=== PATIENT | female | born 1990 | race Caucasian/White ===

== ENCOUNTER 2022-07-03 15:01 | Emergency (ER) | payer OTHER ==
[2022-07-03 15:08] VITALS: BP 136/71
--- NOTE | 2022-07-03 15:33 | ED Physician Documentation ---
PD HPI LOWER EXT INJURY - Stated complaint Stated Complaint: TOE INJURY - Chief complaint Chief Complaint: Trauma Ext - History obtained from History obtained from: Patient - Additional information Additional information: Patient is a 32-year-old female presenting for evaluation of right middle toe pain since Friday. She excellently dropped a Bluetooth speaker on it and has noted bruising and discomfort since then. She notices the pain is worse as she is going downstairs. She has not been taking anything for the pain. She does not take a blood thinner. Review of Systems Constitutional: denies: Fever Cardiac: denies: Chest pain / pressure Respiratory: denies: Dyspnea GI: denies: Abdominal Pain Musculoskeletal: reports: Extremity pain PD PAST MEDICAL HISTORY - Past Medical History Past Medical History: No - Past Surgical History Past Surgical History: No - Allergies Allergies/Adverse Reactions: Allergies Allergy/AdvReac Type Severity Reaction Status Date / Time No Known Drug Allergies Allergy Verified 07/03/22 15:08 - Social History Does the pt smoke?: No Smoking Status: Never smoker Does the pt drink ETOH?: No Does the pt have substance abuse?: No - Immunizations Immunizations are current?: Yes - POLST Patient has POLST: No PD ED PE NORMAL - General General: Alert and oriented X 3, No acute distress, Well developed/nourished - HEENT HEENT: Atraumatic - Cardiac Cardiac: Strong equal pulses - Respiratory Respiratory: No respiratory distress - Derm Derm: Warm and dry - Extremities Extremities: Other (Contusion, mild swelling to distal right middle toe; No subungual hematoma) - Neuro Neuro: No motor deficit, No sensory deficit Results - Vitals Vitals: Vital Signs - 24 hr 07/03/22 15:05 Temperature 36.8 C Heart Rate 92 Respiratory 16 Rate Blood Pressure 136/71 H O2 Saturation 100 Oxygen O2 Source Room air PD Medical Decision Making - ED course Complexity details: reviewed results, re-evaluated patient ED course: Patient with injury to toe. Neurovascularly intact with no open injury and no subungual hematoma requiring trephination. An x-ray was obtained which I interpreted and is negative for signs of fracture or dislocation. She likely has a contusion to the toe which is causing her pain. Patient agreeable to angelique tape and discussed continued supportive care. She is ambulatory. She is advis ed on concerning symptoms to return for. Departure - Departure Disposition: Home, Self Care Clinical Impression: Contusion of toe of right foot Qualifiers: Encounter type: initial encounter Toe: lesser toe Damage to nail status: without damage Qualified Code(s): S90.121A - Contusion of right lesser toe(s) without damage to nail, initial encounter Condition: Stable Instructions: ED Sprain Toe Comments: Your x-ray does not show a broken or dislocated toe. You do have a bruise to the toe which may take several more days for to feel back to normal. Please continue to use caution. We have applied a angelique tape which may help in making this feel better. Please continue with ice and elevating the foot. If you have any new or worsening symptoms please consider return to the emergency department. Forms: Activity restrictions Discharge Date/Time: 07/03/22 15:53
--- NOTE | 2022-07-03 15:42 | XRAY Report ---
PROCEDURE: Toe(s) RT INDICATIONS: pain/dropped speaker on it TECHNIQUE: 3 views of the third toe(s) acquired. COMPARISON: None FINDINGS: Bones: No fractures or dislocations. No suspicious bony lesions. Soft tissues: No suspicious soft tissue densities. IMPRESSION: No displaced fracture. Reviewed by: Sebastian Belle on 07/03/2022 3:41 PM PST Approved by: Sebastian Belle on 07/03/2022 3:41 PM PST Station ID: [id number]
== END 2022-07-03 15:53 | disposition home or self-care (01) ==
LOC: ED 15:01
DX: S90.121A Contusion of right lesser toe(s) without damage to nail, initial encounter (principal); W20.8XXA Other cause of strike by thrown, projected or falling object, initial encounter; Y92.9 Unspecified place or not applicable
CPT/HCPCS: 99283

== ENCOUNTER 2022-08-31 09:04 | Emergency (ER) | payer OTHER ==
[2022-08-31 09:14] VITALS: BP 129/90
[2022-08-31] MEDS ORDERED: CHERRY SYRUP 10 ML UDC PO ONE (09:56)
[2022-08-31] MEDS ORDERED: DEXAMETHASONE 10 MG/ML VIAL PO STA (09:56)
--- NOTE | 2022-08-31 09:59 | ED Physician Documentation ---
PD HPI HEENT - Stated complaint Stated Complaint: LT EAR PX/PRESSURE - Chief complaint Chief Complaint: Heent - History obtained from History obtained from: Patient - History of Present Illness Timing - onset: How many days ago (4) Timing - duration: Days (4) Timing - details: Gradual onset, Still present Location: Left ear Improves: Medication Worsens: Everything Associated symptoms: Congestion, Rhinorrhea, Cough Similar symptoms before: Diagnosis (OM) Recently seen: Clinic - Additional information Additional information: 32-year-old Kendra Ferreira has recently been placed on Augmentin for a left otitis media. She felt this was improving until she blew her nose today and felt pressure develop in her left ear she is unable to get the ear to pop and she is coming in for evaluation. She has recently been into see her doctor 4 days ago and her symptoms improved rapidly after beginning the Augmentin. She did have sore throat initially. Review of Systems Constitutional: denies: Fever Eyes: denies: Decreased vision Ears: reports: Loss of hearing, Ear pain Nose: reports: Rhinorrhea / runny nose, Congestion Throat: reports: Sore throat (Improved) Cardiac: denies: Chest pain / pressure, Palpitations Respiratory: reports: Cough. denies: Dyspnea GI: denies: Nausea, Vomiting, Diarrhea PD PAST MEDICAL HISTORY - Past Surgical History Past Surgical History: No - Present Medications Home Medications: Ambulatory Orders Medication Instructions Recorded Confirmed Amox/Clav 875/125 [Augmentin 1 tablet PO Q12H 08/31/22 08/31/22 875/125 Tab] Semaglutide [Ozempic] 0.25 mg SQ .WEEKLY 08/31/22 08/31/22 - Allergies Allergies/Adverse Reactions: Allergies Allergy/AdvReac Type Severity Reaction Status Date / Time nickel Allergy Rash Verified 08/31/22 09:14 - Social History Does the pt smoke?: No Smoking Status: Never smoker Does the pt drink ETOH?: No Does the pt have substance abuse?: No - Immunizations Immunizations are current?: Yes - POLST Patient has POLST: No PD ED PE NORMAL - Vitals Vital signs reviewed: Yes (Hypertensive mild) - General General: Alert and oriented X 3, No acute distress, Well developed/nourished - HEENT HEENT: Atraumatic, PERRL, EOMI, Pharynx benign, Other (The left TM is erythematous but with landmarks and no evidence of bulging or retraction.) - Neck Neck: Supple, no meningeal sign, No bony TTP - Cardiac Cardiac: RRR, No murmur - Respiratory Respiratory: No respiratory distress, Clear bilaterally - Abdomen Abdomen: Soft, Non tender - Back Back: No CVA TTP, No spinal TTP - Derm Derm: Normal color, Warm and dry, No rash - Extremities Extremities: No deformity, No edema - Neuro Neuro: Alert and oriented X 3, vinegar maker 2-12 intact, No motor deficit, No sensory deficit, Normal speech Eye Opening: Spontaneous Motor: Obeys Commands Verbal: Oriented GCS Score: 15 - Psych Psych: Normal mood, Normal affect Results - Vitals Vitals: Vital Signs - 24 hr 08/31/22 09:08 Temperature 37.1 C Heart Rate 82 Respiratory 15 Rate Blood Pressure 129/90 H O2 Saturation 99 Oxygen O2 Source Room air PD Medical Decision Making - ED course Complexity details: considered differential, d/w patient ED course: 32-year-old female with a history of otitis media has now blown her nose and is unable to clear her left ear. She presents to the emergency department with pain and loss of hearing in the left ear. She on exam has the appearance of otitis which appears to be resolving. I suspect some eustachian tube swelling and we have provided some dexamethasone today and I have encouraged the patient to use some Nasacort during this illness to keep the eustachian tube open for drainage. Departure - Departure Disposition: 01 Home, Self Care Clinical Impression: Otitis media Qualifiers: Otitis media type: suppurative Chronicity: acute Laterality: left Recurrence: non-recurrent Spontaneous tympanic membrane rupture: without spontaneous rupture Qualified Code(s): H66.002 - Acute suppurative otitis media without spontaneous rupture of ear drum, left ear Condition: Stable Instructions: ED Otitis Media Acute Adult Follow-Up: SYDNI EDWARD PA-C [Primary Care Provider] - Comments: Kendra, today it looks like you have a bit of eustachian tube dysfunction and this is a normal occurrence with an infection and the inflammation involved with it. We have given you a dose of dexamethasone today and the expectation with this is to improve the drainage from your ear and you should have resolution of the pressure and improvement in your hearing. If you continue to have an issue with this the use of Nasacort is recommended.
== END 2022-08-31 10:10 | disposition home or self-care (01) ==
LOC: ED 09:04
DX: H66.002 Acute suppurative otitis media without spontaneous rupture of ear drum, left ear (principal)
CPT/HCPCS: 99282; 99283; A9270

== ENCOUNTER 2022-10-16 16:23 | Outpatient (CLI) | payer OTHER ==
--- NOTE | 2022-10-17 16:36 | MRI Report ---
PROCEDURE: LOWER LEG (TIB-FIB) WO - RT INDICATIONS: ENTHESOPATHY LOWER LIMB TECHNIQUE: Noncontrast coronal and sagittal T1 spin echo and STIR; axial T1 spin echo and T2 fast spin echo with fat saturation through the right lower leg. COMPARISON: None. FINDINGS: Image quality: Excellent. Bones: The visualized bone marrow demonstrates normal signal on all sequences. The overlying cortex appears intact. No fractures lines or intra-osseous lesions. No bony erosion or periosteal reactio n is seen. Soft tissues: The scanned muscles demonstrate normal overall bulk and internal signal. Mild subcutan eous soft tissue edema along anterior aspect of proximal to mid tibial shaft. IMPRESSION: 1. Finding may represent very mild tibial stress injury involving along anterior aspect of proximal t o mid tibial shaft with subcutaneous soft tissue edema. No periosteal reaction or cortical destructio n. No marrow edema. 2. No right calf muscle signal abnormality. Reviewed by: Magdy Amezquita MD on 10/17/2022 4:34 PM PDT Approved by: Magdy Amezquita MD on 10/17/2022 4:34 PM PDT Station ID: [id number]
== END 2022-10-16 16:24 | disposition home or self-care (01) ==
LOC: DI 16:23
PROVIDERS: ATTEND Physician Assistant
DX: M84.38XA Stress fracture, other site, initial encounter for fracture (principal)